=== PATIENT | male | born 1980 | race Caucasian/White ===

== ENCOUNTER 2020-10-23 17:37 | Emergency (ER) | payer BC, SELFPAY ==
[2020-10-23 18:07] VITALS: BP 132/85; PULSE 96; RESP 14; TEMP 37; O2SAT 96
--- NOTE | 2020-10-23 18:14 | PC.NURSE ---
No SI today; discussed with Dr. Galvez, precautions not ordered.
[2020-10-23 19:13] VITALS: BP 112/78; PULSE 110; RESP 16; TEMP 36.4; O2SAT 99
--- NOTE | 2020-10-23 19:29 | ED.HA ---
HPI - Headache General Chief Complaint: Headache Stated Complaint: MIGRAINES Time Seen by Provider: 10/23/20 18:52 Source: patient and family Mode of arrival: ambulatory Limitations: clinical condition History of Present Illness HPI Narrative: 39-year-old male Presents for evaluation of headache typical of his migraines Bulk of the history is obtained from significant other Is a long history of migraine headaches which formerly followed by a neurologist in [facility] until he moved to this area 6 or 7 months ago, and since then has been followed by primary care out of [facility] He reports onset of a migraine this morning which is become rather severe and is associated with stuttering speech which has been the case with more severe episodes over the years He has a prescription for abortive triptans but did not take it because he felt nauseated He has not vomited He does not have any focal neurologic symptoms a stiff neck fever He thinks this might have been triggered by possibly being fed pineapple unintentionally in a dish that a new neighbor brought to a neighborhood dinner They also think he is sensitive to several medications but do not have a list and cannot name them Related Data Allergies Allergy/AdvReac Type Severity Reaction Status Date / Time hydromorphone [From Dilaudid] Allergy Seizure Verified 10/23/20 19:28 pineapple Allergy Nausea Verified 10/23/20 19:25 promethazine [From Phenergan] Allergy Seizure Verified 10/23/20 19:29 sulfamethoxazole Allergy Unknown Verified 10/23/20 19:29 [From Bactrim] Tetanus Vaccines and Toxoid Allergy Hives Verified 10/23/20 19:29 trimethoprim [From Bactrim] Allergy Unknown Verified 10/23/20 19:29 Review of Systems Review of Systems: ROS unobtainable: Yes unobtainable due to medical condition Constitutional: Constitutional: Denies headache(s) Eyes: Eyes: Denies change in vision ENT: Denies headache(s), Denies epistaxis and Denies sore throat Cardiovascular: Cardiovascular: Denies dyspnea Gastrointestinal: Gastrointestinal: Reports nausea and Denies vomiting Genitourinary: Genitourinary: Denies dysuria and Denies urinary frequency Musculoskeletal: Musculoskeletal: Denies deformity and Denies numbness Integumentary/Breasts: Skin/Breast: Denies wounds Neurologic: Reports headache(s), Denies focal weakness and Denies numbness Comments: Speech difficulty Psychiatric: Psychiatric: Reports no additional psychiatric complaints Endocrine: Endocrine: Reports no additional endocrine complaints Hematologic/Lymphatic: Hematologic/Lymphatic: Reports no additional hematologic/lymphatic complaints Allergic/Immunologic: Allergic/Immunologic: Reports no additional allergic/immunologic complaints Exam Const: General: cooperative and alert Orientation/consciousness: patient oriented x3 (alert) HENMT: Head: normal to inspection, normocephalic, atraumatic, no contusions and no hematomas Eyes: Conjunctivae: conjunctivae normal Pupils: Equal, round and reactive pupils present EOM: EOMs intact bilaterally Neck: Neck: supple and no JVD Other: Supple Resp: Effort & Inspection: normal respiratory effort Auscultation: clear to auscultation bilaterally and other (BS =) Cardio: Rate: regular rate Rhythm: regular rhythm GI: GI Palp: No Tenderness to palpation present (GI) Skin: General skin exam: normal color and no rashes or lesions noted Neuro: General: patient oriented x3 (alert) and moves all extremities Speech: Abnormal speech present Extrem: General: normal to inspection Course Course Emergency Course: After the toradol he felt well enough to go home Vital Signs Vital signs: Vital Signs Temperature 37.0 C 10/23/20 18:07 Pulse Rate 96 10/23/20 18:07 Respiratory Rate 14 10/23/20 18:07 Blood Pressure 132/85 10/23/20 18:07 Pulse Oximetry 96 10/23/20 18:07 Temperature 36.4 C 10/23/20 19:13 Pulse R
--- NOTE | 2020-10-23 19:30 | PC.NURSE ---
Pt reports extensive list of allergies that he is unable to remember. this RN updated list and ED MD Adams aware. Per pt, given zofran per EMS en route. c/o migraine and nausea. IV in place per EMS.
[2020-10-23] MEDS: METOCLOPRAMIDE HCL INJ 10 MG/2 ML VIAL IV PUSH (19:36)
[2020-10-23] MEDS: diphenhydrAMINE HCl INJ 50 MG/ML VIAL IV PUSH (19:37)
[2020-10-23] MEDS: LACTATED RINGERS 1,000 ML 999 ML IV CONT (19:37)
--- NOTE | 2020-10-23 21:14 | PC.NURSE ---
Release of Health Information form signed by pt and given to ED clerk secretary to fax to [facility] in [place], [place] as requested by pt and present.
[2020-10-23 21:16] VITALS: BP 109/47; PULSE 98; RESP 16; O2SAT 98
--- NOTE | 2020-10-23 21:42 | PC.NURSE ---
pt no longer stammering. reports [id number] pain 8/10 improved from arrival /10. resting c eyes closed. monitoring continues.
[2020-10-23] MEDS: KETOROLAC 30 MG/ML VIAL (*BKC) IV PUSH (21:57)
[2020-10-23 23:16] VITALS: BP 111/52; PULSE 100; RESP 18; TEMP 36.6; O2SAT 100
== END 2020-10-23 23:20 | disposition home or self-care (01) ==
PROVIDERS: Emergency Provider Emergency Medicine
DX: G43.909 Migraine, unspecified, not intractable, without status migrainosus (principal)
CPT/HCPCS: 96361; 96374; 96375; 99284; J1100; J1200; J1885; J2765; J7120